=== PATIENT | female | born 1930 | race Caucasian/White ===

== ENCOUNTER 2017-04-22 08:45 | Emergency (ER) | payer MEDICARE, OTHER ==
[~2017-04-22] VITALS: Ht 162.6 cm; Wt 96.2 kg
[~2017-04-22 08:45] MED LIST: AMITIZA24 MCG PO; ARICEPT10 MG PO; CYMBALTA60 MG PO; EDECRIN25 MG PO; ELIQUIS5 MG PO; LYRICA200 MG PO; MYRBETRIQ50 MG PO; PROTONIX40 MG PO; VERAPAMIL ER120 MG PO
[2017-04-22] MEDS ORDERED: ARICEPT10 MG PO (10:58)
== END 2017-04-22 12:40 | disposition short-term general hospital (02) ==
LOC: ER 08:45
DX: N39.0 Urinary tract infection, site not specified (principal); K21.9 Gastro-esophageal reflux disease without esophagitis; I10 Essential (primary) hypertension; F03.90 Unspecified dementia, unspecified severity, without behavioral disturbance, psychotic disturbance, mood disturbance, and anxiety; E66.9 Obesity, unspecified; M19.90 Unspecified osteoarthritis, unspecified site; E55.9 Vitamin D deficiency, unspecified; Z86.73 Personal history of transient ischemic attack (TIA), and cerebral infarction without residual deficits; Z86.2 Personal history of diseases of the blood and blood-forming organs and certain disorders involving the immune mechanism; Z86.718 Personal history of other venous thrombosis and embolism; Z79.01 Long term (current) use of anticoagulants; Z79.899 Other long term (current) drug therapy; Z88.8 Allergy status to other drugs, medicaments and biological substances; Z88.5 Allergy status to narcotic agent; Z88.0 Allergy status to penicillin; Z88.2 Allergy status to sulfonamides
CPT/HCPCS: J0696

== ENCOUNTER 2017-04-29 18:14 | Emergency (ER) | payer MEDICARE, OTHER ==
[~2017-04-29] VITALS: Ht 162.6 cm; Wt 92.1 kg
[2017-04-29] MEDS ORDERED: MYRBETRIQ50 MG PO (18:33)
[2017-04-29] MEDS ORDERED: CEROVITE ADVANC1 TAB PO (18:35)
== END 2017-04-29 19:17 | disposition short-term general hospital (02) ==
LOC: ER 18:14
PROC: 2Y41X5Z Packing of Nasal Region using Packing Material (ICD-10-PCS; principal; 2017-04-29)
DX: R04.0 Epistaxis (principal); Z88.0 Allergy status to penicillin; Z88.2 Allergy status to sulfonamides